=== PATIENT | female | born 1950 | race Caucasian/White ===

== ENCOUNTER 2017-05-23 05:46 | Inpatient (IN) ==
--- NOTE | 2017-05-22 12:32 | EKG Report ---
Stationary ECG Study [facility] Test Date: 05/22/2017 12:31:18 PM Pat Name: JUANA MANZO Department: Room: Gender: F Welding Foreman: RAJI CHO [birth year] : 1950 Requested by: Kyle Byrne Order Number: [id number] Casandra MD: TOMMY CHAKRABORTY Intervals [place] Rate: 73 P: 74 WA: 163 QRS: 63 QRSD: 87 T: 37 QT: 352 QTc: 379 Interpretive Statements SINUS RHYTHM WITH SINUS ARRHYTHMIA Electronically Signed On 05-22-17 18:46:22 CDT by TOMMY CHAKRABORTY [email or web address]
[2017-05-22 13:11] LABS: Basophils % 0.5 % (0.0-0.8); Eosinophils # 0.2 10*3/uL (0.0-0.87); Eosinophils % 2.6 % (0.00-10.9); Hematocrit 34.9 VOL% (35.7-47.0); Immature Granulocytes % 0.3 %; Immature Granulocytes Absolute 0.02 #; Lymphocytes # 1.8 10*3/uL (1.4-4.0); Lymphocytes % 24.6 % (21.3-54.2); Mean Corpuscular HGB Conc 34.4 GM/DL (32-36); Mean Corpuscular Hemoglobin 33 PG (27-34); Mean Corpuscular Volume 94.6 FL (87-102); Mean Platelet Volume 9.7 FL (9.6-12.0); Monocytes # 0.5 10*3/uL (0.11-0.8); Monocytes % 7.2 % (1.7-12.7); Neutrophils # 4.7 10*3/uL (1.4-7.4); Neutrophils % 64.8 % (38.7-73.9); Platelet Count 238 T/CUMM (130-400); Red Blood Count 3.69 MC/CUMM (3.8-5.5); White Blood Count 7.3 T/CUMM (4-12)
--- NOTE | 2017-05-22 13:22 | XRay Report ---
2 view chest 05/22/2017 12:21 PM Indication: Preoperative evaluation Comparison: Not available Findings: Cardiomediastinal contours are normal. Lungs are clear bilaterally. . No acute osseous abnormalities. Abnormal ossific density within the right shoulder, likely represents sequela from remote injury. Visualized upper abdomen demonstrates no acute pathology. Impression: No acute cardiopulmonary findings PROCEDURE INTERPRETED AT [facility] DEPARTMENT OF RADIOLOGY Final Report Signed by: Clyde Roman
[2017-05-22 13:25] LABS: Apearance,Urine CLEAR (Clear); Bilirubin,Urine Negative (Negative); Blood, Urine Negative (Negative); Glucose,Urine (UA) Negative (Negative); Ketones,Urine 5 mg/dL (Negative); Mucus,Urine Occasional /LPF (Occasional); Nitrite,Urine Negative (Negative); Protein,Urine Negative; RBC,Urine <1 /HPF (0-4); Urine Color Yellow (Yellow); Urine Specific Gravity 1.009 (1.001-1.035); Urine Urobilinogen < 2.0 EU/DL (0.2-1.0); WBC,Urine <1 /HPF (0-6)
[2017-05-22 13:31] LABS: Calcium 8.8 MG/DL (8.5-10.1); Osmolality,Calculated 281.3 MOS/KG (273-304); Potassium 4.2 MMOL/L (3.5-5.1)
[2017-05-23] MEDS ORDERED: ONDANSETRON 4 MG/2 ML VIAL IV STA (05:52)
[2017-05-23] MEDS ORDERED: ACETAMINOPHEN 500 MG TABLET PO STA (05:54)
[2017-05-23] MEDS ORDERED: GABAPENTIN 100 MG CAPSULE PO STA (06:04)
[2017-05-23] MEDS ORDERED: GABAPENTIN 400 MG CAPSULE PO STA (06:04)
[2017-05-23] MEDS ORDERED: GABAPENTIN 400 MG CAPSULE ONE ×2 (06:56→07:05)
[2017-05-23] MEDS ORDERED: ACETAMINOPHEN 500 MG TABLET ONE (06:56)
[2017-05-23] MEDS ORDERED: ceFAZolin 1,000 MG VIAL ONE (06:57)
[2017-05-23] MEDS ORDERED: ONDANSETRON 4 MG/2 ML VIAL ONE ×3 (06:57→11:54)
[2017-05-23] MEDS ORDERED: SCOPOLAMINE 1.5 MG PATCH TRANSDERM ONE ×2 (06:57→07:29)
[2017-05-23] MEDS ORDERED: SODIUM CHLORIDE 0.9% 100 ML IV ONE (06:58)
--- NOTE | 2017-05-23 07:07 | History and Physical Update ---
History and Physical Update - History and Physical H&P was reviewed, the patient examined and there: are no changes in the patients condition since last H&P was completed.
[2017-05-23] MEDS ORDERED: GENTAMICIN 80 MG/2 ML VIAL ONE (07:17)
[2017-05-23] MEDS ORDERED: ROPIVACAINE 0.5% 30 ML VIAL ONE (07:23)
[2017-05-23] MEDS: LACTATED RINGERS 1,000 ML IV SCH ×4 (07:32→14:17)
[2017-05-23] MEDS ORDERED: GLYCOPYRROLATE 0.4 MG/2 ML VIAL ONE (08:20)
[2017-05-23] MEDS ORDERED: ROCURONIUM 100 MG/10 ML VIAL IV ONE (08:20)
[2017-05-23] MEDS ORDERED: NEOSTIGMINE 10 MG/10 ML VIAL ONE (08:20)
[2017-05-23] MEDS ORDERED: LIDOCAINE 2% 5 ML VIAL ONE (08:20)
[2017-05-23] MEDS ORDERED: KETOROLAC 30 MG/1 ML VIAL ONE (08:20)
[2017-05-23] MEDS ORDERED: PROPOFOL 200 MG/20 ML VIAL IV ONE (08:20)
[2017-05-23] MEDS ORDERED: PHENYLEPHRINE 1 MG/10 ML SYRINGE IV ONE (08:20)
[2017-05-23] MEDS ORDERED: PHENYLEPHRINE 50 MG/5 ML VIAL ONE (08:20)
[2017-05-23] MEDS ORDERED: TRANEXAMIC ACID 1,000 MG/10 ML VIAL IV ONE (09:14)
[2017-05-23] MEDS ORDERED: BACITRACIN OINT 0.9 GM PACK TOP ONE (11:22)
[2017-05-23] MEDS ORDERED: MAGNESIUM HYDROXIDE SUSP 30 ML UDCUP PO PRN (11:42)
[2017-05-23] MEDS ORDERED: ONDANSETRON 4 MG/2 ML VIAL IV PRN ×2 (11:42→11:55)
[2017-05-23] MEDS ORDERED: KETOROLAC 30 MG/1 ML VIAL IV PRN (11:42)
[2017-05-23] MEDS ORDERED: MORPHINE 2 MG/1 ML SYRINGE IV PRN ×2 (11:42)
--- NOTE | 2017-05-23 11:53 | Anesthesia Post-Op ---
Anesthesia Post OP - Post Ansesthetic Evaluation Patient seen in post op: Yes Resp: within normal limits CV: within normal limits Mental: within normal limits Temp: within normal limits Tmtt-Zm-Bnttbuyat: within normal limits Nausea and Vomiting: within normal limits Pain: within normal limits
[2017-05-23] MEDS ORDERED: DESFLURANE 1 UNIT/15 MINUTE INH ONE (11:54)
[2017-05-23] MEDS ORDERED: fentaNYL 100 MCG/2 ML VIAL ONE (11:54)
[2017-05-23] MEDS ORDERED: MIDAZOLAM 2 MG/2 ML VIAL ONE (11:55)
[2017-05-23] MEDS ORDERED: LACTATED RINGERS 2,000 ML IV ONE (11:55)
[2017-05-23] MEDS ORDERED: SODIUM CHLORIDE 0.9% 250 ML IV ONE (11:55)
[2017-05-23] MEDS ORDERED: ACETAMINOPHEN 1,000 MG/100 ML VIAL IV ONE (11:55)
[2017-05-23] MEDS ORDERED: PROMETHAZINE INJ 6.25 MG in SODIUM CHLORIDE 0.9% 50 ML IV ONE (12:05)
[2017-05-23] MEDS ORDERED: PROMETHAZINE 25 MG/1 ML VIAL ONE (12:06)
--- NOTE | 2017-05-23 12:43 | XRay Report ---
Exam: XR humerus RT Date: 05/23/2017 Indication: ORIF Comparison: Chest radiograph Technical: 5 fluoroscopic images were obtained with 38 seconds fluoroscopy time provided to Dr. Quick. Findings: Side plate and screws are placed stabilizing the radius head and neck fracture.. No new fractures are demonstrated. Impression: 1. ORIF with plating of right head and neck fracture with multiple screws and plates PROCEDURE INTERPRETED AT [facility] DEPARTMENT OF RADIOLOGY Final Report Signed by: Dr. Joel Sevilla
--- NOTE | 2017-05-23 13:02 | Operative Note ---
Date of procedure: 05/23/17 Procedure: DIAGNOSIS: Right 3 part valgus impacted proximal humerus fracture, rotator cuff tear PROCEDURE: Open reduction fixation right proximal humerus fracture, open right rotator cuff repair SURGEON: Abdelrahman ANESTHESIA: General, interscalene block PROCEDURE and FINDINGS: After adequate anesthesia was induced, right upper extremities prepped and draped in usual sterile fashion beachchair position. A deltopectoral approach was made. Deltoid and cephalic vein were retracted laterally. Pectoralis major and strap muscles were retracted medially. The proximal centimeter of pectoralis major tendon was released to help with visualization. The fracture was identified. The greater tuberosity fragment was identified and tagged with #2 Orthocord. The reduction was hard to maintain. Crushed cancellus allograft bone soaked in normal saline and 160 mg gentamicin was placed within the fracture cavity. This significantly helped to maintain the reduction of the humeral head. The supraspinatus was detached from the greater tuberosity and I suspect that this was chronic. There was an acute longitudinal rotator Cuff tear posteriorly at the junction between the head fragment and the greater tuberosity fragment. The longitudinal wounds were repaired with [id number] #2 Orthocord sutures. The supraspinatus was tagged with Orthocord for future repair to the plate. The greater tuberosity fragment was repaired to [employer] proximal humerus locking plate with #2 Orthocord. Multiple locking screws were placed in the superior portion of the plate. Distally the plate was secured to the shaft with 2 3.5 mm cortical screws. The supraspinatus was repaired to the plate through the superior holes. The shoulder was taken through a range of motion. The repair was stable. Fluoroscopy was used to verify that the screws were intraosseous. The deltopectoral split was repaired with multiple 0 Vicryl [id number] sutures. Subcutaneous tissue was closed deep with a running 2-0 Vicryl and superficially with interrupted, buried 3-0 Vicryl sutures. Harpreet were used to close skin. Triple antibiotic ointment and a sterile soft dressing was applied. Patient was extubated and transferred recovery room in stable condition. Surgeon / Physician: Kyle Quick Jr. Results - Labs CBC & BMP: 05/22/17 13:06 05/22/17 13:06 Discharge Plan - Discharge Medications No Action Ondansetron Tab [Zofran Tab] 4 mg PO Q6HR PRN PRN Reason: Nausea Hydrocodone/Acetaminophen [[place] 10-325 Tablet] 1 each PO DIRECTED PRN PRN Reason: Pain Omeprazole [Prilosec] 20 mg PO DIRECTED Vitamin D3 1 tablet PO DAILY Ranitidine Tab [Zantac Tab] 150 mg PO DAILY Aspirin EC Tab 81 mg PO DAILY Calcium Carb/Mag Ox/Zinc Sulf [Khodlay-Lezxylxgq-Kciz Tablet] 1 each PO DAILY Multivit-Min/Iron/Folic/Lutein [Centrum Silver Women Tablet] 1 each PO DAILY Glucosamine/MSM/Chondroitin A [Glucosamine Chondroit MSM Tab] 1 each PO DAILY - Follow Up or Referral - Forms/Instructions
--- NOTE | 2017-05-23 14:11 | Orthopedic Progress Note ---
Orthopedics - Subjective Interval history: Comfortable. Sitting up in a chair. Block working. Motors are a little weak to her hand. Sensation diminished. Dressing dry. Findings of surgery and post op instructions discussed. Home tomorrow. Exam - Constitutional Vitals: Period Temp Pulse Resp BP Sys/Grubbs Pulse Ox Last 24 Hr 97.3 F-98.4 F 69-88 14-20 130-172/7-96 93-98 Results - Labs CBC & BMP: 05/22/17 13:06 05/22/17 13:06 Specialty Discharge - Follow Up or Referrals Follow up with: Kyle Quick Jr., MD [Physician] - (call friday morning to make a 7-[address] Quick [phone])
[2017-05-23] MEDS ORDERED: ONDANSETRON 4 MG TABLET PO PRN (14:14)
--- NOTE | 2017-05-23 14:14 | Discharge Summary ---
Hospital Course - Hospital Course Hospital Course: Lina Albarado was admitted after undergoing open reduction fixation of a right 3 part valgus impacted proximal humerus fracture and open repair of her rotator cuff. She received perioperative antimicrobial prophylaxis. She was discharged home in stable condition. Specialty Discharge - Follow Up or Referrals Follow up with: Kyle Quick Jr., MD [Physician] - (call friday to make a 7-[address] Quick [phone]) Discharge Plan - Discharge Data Disposition: Disch To Home/Self Care Condition at Discharge: Stable Discharge Diet: advance to your usual diet Weight Bearing at Discharge: non-weight bearing Driving: not until seen by doctor - Discharge Medications No Action Ondansetron Tab [Zofran Tab] 4 mg PO Q6HR PRN PRN Reason: Nausea Hydrocodone/Acetaminophen [[place] 10-325 Tablet] 1 each PO Q4H PRN PRN Reason: Pain Omeprazole [Prilosec] 20 mg PO DAILY Cholecalciferol [Vitamin D3] 1,000 unit PO DAILY Aspirin EC Tab 81 mg PO DAILY Calcium Carb/Mag Ox/Zinc Sulf [Xbayzem-Xvtdjmpye-Asai Tablet] 1 each PO DAILY Multivit-Min/Iron/Folic/Lutein [Centrum Silver Women Tablet] 1 each PO DAILY Glucosamine/MSM/Chondroitin A [Glucosamine Chondroit MSM Tab] 1 each PO DAILY - Follow Up or Referral Follow Up: Kyle Qucik Jr., MD [Physician] - (call friday to make a 7-[address] Quick [phone]) - Forms/Instructions Instructions: Open Reduction and Internal Fixation of an Arm Fracture (DC), Rotator Cuff Tear Repair (DC) Additional Discharge Instructions: Follow-up appointment in 7-10 days. Start daily dry dressing changes in 48 hours. May take brief shower then. Pendulums 3 times daily. Remove arm from sling 3 times daily to move elbow through hand. Prescription for [place] 7.5 with 30 tablets was written. Ice prn to right shoulder. Exam - Constitutional Vitals: Period Temp Pulse Resp BP Sys/Grubbs Pulse Ox Last 24 Hr 97.3 F-98.4 F 69-88 14-20 130-172/7-96 93-98 DS: Provider Date of admission: 05/23/17 11:42 Attending physician on admission: Kyle Quick Jr., Consults: 05/23/17 11:45 Consult to Occupational Therapy [CONS] Routine Reason for Occupational Therapy: Evaluate and Treat Start Therapy: Today Consult Comment: instruct pendulums 3x daily Discharging clinician: Kyle Quick Jr., Expected date of discharge: 05/24/17
[2017-05-23] MEDS: PANTOPRAZOLE 40 MG TABLET PO SCH (14:29)
[2017-05-23] MEDS: ceFAZolin 2,000 MG in PREMIX 1 EACH IV SCH (17:37)
[2017-05-24] MEDS: ceFAZolin 2,000 MG in PREMIX 1 EACH IV SCH (01:03)
[2017-05-24] MEDS: LACTATED RINGERS 1,000 ML IV SCH ×3 (01:03→09:53)
[2017-05-24 07:47] VITALS: BP 132/69
[2017-05-24] MEDS ORDERED: CHOLECALCIFEROL 1,000 UNIT TABLET PO SCH (09:00)
[2017-05-24] MEDS ORDERED: CALCIUM (CARBONATE) 600 MG TABLET PO SCH (09:00)
[2017-05-24] MEDS ORDERED: RANITIDINE 150 MG TABLET PO SCH (09:00)
[2017-05-24] MEDS ORDERED: GLUCOSAMINE 500 MG TABLET PO SCH (09:00)
[2017-05-24] MEDS ORDERED: ASPIRIN EC 81 MG TABLET PO SCH (09:00)
[2017-05-24] MEDS ORDERED: MULTIVITAMIN (CENTRUM) TABLET PO SCH (09:00)
[2017-05-24] MEDS: PANTOPRAZOLE 40 MG TABLET PO SCH (09:41)
== END 2017-05-24 13:00 | disposition home or self-care (01) | DRG 494 ==
LOC: N.OR 05:46 → N.SDSINP 05:48 → N.3E 11:42
PROVIDERS: ADMIT Orthopaedic Surgery; ATTEND Orthopaedic Surgery